=== PATIENT | female | born 1960 | race Caucasian/White ===

== ENCOUNTER 2016-09-17 10:21 | Emergency (ER) ==
--- NOTE | 2016-09-17 11:08 | PROVIDER DOCUMENTATION ---
HPI-General Adult - General Source: patient - History of Present Illness -Gen Adult Nature of Presenting Problems: 56 y/o WF c/o FB under skin. Pt states a long hx of pulling razor blades and plastic out of her skin. States that she has several lacerations to her head and there are also peices of plastic coming from her lips. States that she has been seen several times for this problem, but has not had any relief yet. Denies any other sxs, including SI/HI. <Celi Estevez - Last Filed: 09/17/16 20:04> <Romeo Penny - Last Filed: 09/18/16 01:40> <Jaret Traore - Last Filed: 09/18/16 08:36> - General Chief Complaint: Sores/Lesions Stated Complaint: GENERAL Time Seen by Provider: 09/17/16 10:42 Allergies/Adverse Reactions: Patient Allergies Allergy/AdvReac Type Severity Reaction Status Date / Time No Known Allergies Allergy Verified 09/17/16 10:55 Home Medications: Buspirone HCl [Buspar] 5 mg PO BID 08/05/16 Clonazepam [Klonopin] 2 mg PO BID 09/06/16 Review of Systems - Adult - REVIEW OF SYSTEMS - ADULT Constitutional: reports: no symptoms reported. denies: chills, fever Eyes: reports: no symptoms reported. denies: blurred vision, double vision Ears, Nose, Mouth & Throat: reports: no symptoms reported. denies: ear pain, throat pain Cardiovascular: reports: no symptoms reported. denies: chest pain, palpitations Respiratory: reports: no symptoms reported. denies: dyspnea on exertion, shortness of breath Gastrointestinal: reports: no symptoms reported. denies: abdominal pain, nausea , vomiting Genitourinary: reports: no symptoms reported. denies: dysuria, frequency Musculoskeletal: reports: no symptoms reported. denies: joint pain, joint swelling Integumentary: reports: see HPI, other. denies: nail changes, rash Neurological: reports: no symptoms reported. denies: numbness, paresthesia Psychiatric: reports: see HPI, other. denies: suicidal thoughts Endocrine: reports: no symptoms reported. denies: cold intolerance, heat intolerance Hematologic/Lymphatic: reports: no symptoms reported. denies: easy bruising, prolonged bleeding Allergic/Immunologic: reports: no symptoms reported All Other Systems: Reviewed and Negative <Celi Estevez - Last Filed: 09/17/16 20:04> Past History - Adult - PAST MEDICAL HISTORY-ADULT Review of Records: reports: Nursing Assessment Review, Medications Reviewed Major Childhood Illnesses: reports: denies history Cardiovascular: reports: denies history Respiratory: reports: COPD Gastrointestinal: reports: denies history Obstetrical/Gynecological: reports: denies history Genitourinary: reports: denies history Musculoskeletal: reports: chronic pain Neurological: reports: headaches/migraines, Seizures/Epilepsy, other (cerebral aneurysms) Psychiatric: reports: anxiety, depression, psychiatric problems Endocrine/Immune: reports: denies history Other Conditions: reports: denies history Additional History: Hep-C - PRIOR SURGERIES/PROCEDURES Surgical/Procedure History: reports: , other (craniotomy) - PRIOR HOSPITALIZATIONS Prior Hospitalizations: reports: psychiatric or rehab - IMMUNIZATION STATUS Childhood Immunizations: See Nurse Assessment Flu Vaccine: See Nurse Assessment - FAMILY HISTORY Family History: reviewed, not pertinent - SOCIAL HISTORY Smoking: cigarettes, less than 1 pack/day Provider spent 3-5 mins advising pt. on dangers of tobacco.: Discussed manners to quit use, and f/u contacts for add'l counseling. <Celi Estevez - Last Filed: 09/17/16 20:04> Physical Exam-General - PHYSICAL EXAM-ADULT Initial Vital Signs Reviewed: Yes - CONSTITUTIONAL General Appearance: alert, moderate distress - EYES Eyes: pink conjunctivae - HEAD, EARS, NOSE, MOUTH & THROAT HENMT: normocephalic/atraumatic, moist mucous membranes - NECK Neck: supple, normal inspection - RESPIRATORY Respiratory: lungs clear, normal breath sounds. negative: crackles, rales, rhonchi, stridor, wheezing - CARDIOVASCULAR Cardiovascular: regular rate, rhythm. negative: bradycardia, tachycardia - MUSCULOSKELETAL Extremity: normal range of motion, normal inspection, normal capillary refill. negative: abnormal NV exam, tenderness - SKIN Integumentary: normal color, normal turgor, warm/dry, other (skin abrasion to nose and upper lip from fall). negative: erythema, laceration(s), rash, swelling, tenderness - NEUROLOGIC Neurologic: communications administrator II-XII nml as tested. negative: aphasia - PSYCHIATRIC Psych/Mental Status: anxious, tearful, other (pulling at her skin during exam on bilat UE, bilat LE, lower lip, neck, low back; nothing noted in these areas on exam.) <Celi Estevez - Last Filed: 09/17/16 20:04> Progress - PLAN OF CARE/RESULTS Progress/Plan/Lab Results: Dermatology office called to see if pt could get an appt soon; they advised office closing early and the soonest appt would be in December. Discussed this with pt and she states if she doesn't get to see her today, she will kill herself. Pt is now being evaluated as psych. - PSYCHIATRIC Medically clear for psych eval and/or transfer to [facility] Yes - XRAY 1 XRAY Study: Chest Impression: See EMR Report (Negative, per Dr. Llanos) - CT/MRI 1 CT Study: Head Impression: See EMR Report (No acute disease or change from prior, per Dr. Llnaos) - CONSULTS/PCP/HOSPITALIST Notification #1 *Consult/PCP/Hospitalist*: W screenerLauri Time Discussed: 15:30 Reason/Comments: SI, psych Consult Disposition: other (Will look for a bed; nothing available at [facility]) <Celi Estevez - Last Filed: 09/17/16 20:04> - REASSESSMENT Reassessment #1 Time Reassessed: 21:27 Status: unchanged Reassessment Comment: Pt resting in the bed. NAD. - CHANGE OF SHIFT REPORT (ED Provider) Report Given and Care Transferred to:: Romeo Penny PA-C (Wes) Time of Transfer: 21:26 Items Pending: Other (Placement) Tentative Impression of Patient: stable <Romeo Penny - Last Filed: 09/18/16 01:40> - PLAN OF CARE/RESULTS Progress/Plan/Lab Results: Laboratory Results - last 24 hr 09/17/16 09/17/16 09/17/16 11:49 11:49 12:30 WBC RBC Hgb Hct MCV MCH MCHC RDW Std Deviation Plt Count MPV Immature Gran % (Auto) Neut % (Auto) Lymph % (Auto) Angelina % (Auto) Eos % (Auto) Baso % (Auto) Immature Gran # (Auto) Neut # (Auto) Lymph # (Auto) Angelina # (Auto) Eos # (Auto) Baso # (Auto) Sodium Potassium Chloride Carbon Dioxide Anion Gap BUN Creatinine Estimated GFR/1.73 m2 BUN/Creatinine Ratio Glucose Calculated Osmolality Calcium Magnesium 1.7 Total Bilirubin AST ALT Alkaline Phosphatase Total Protein Albumin Globulin Albumin/Globulin Ratio Vitamin B12 Folate TSH Free T4 Urine Source CLEAN CATCH Urine Color YELLOW Urine Turbidity CLEAR Urine pH 7.0 Ur Specific [place] 1.018 Urine Protein NEGATIVE Ur Glucose (Stick) TRACE Ur Ketones (Stick) NEGATIVE Urine Blood NEGATIVE Urine Nitrite NEGATIVE Urine Bilirubin NEGATIVE Urobilinogen Dipstick NORMAL Urine Leukocytes NEGATIVE Urine WBC (Auto) <10 Urine RBC (Auto) <10 U Epithel Cells (Auto) <10 Urine Bacteria (Auto) NEGATIVE Urine Opiates Screen PRESUMPTIVE POSITIVE A Ur Oxycodone Screen PRESUMPTIVE POSITIVE A Ur Methadone, Qual NONE DETECTED Ur Barbiturates Screen NONE DETECTED Ur Phencyclidine Scrn NONE DETECTED Ur Amphetamines Screen NONE DETECTED U Benzodiazepines Scrn PRESUMPTIVE POSITIVE A Urine Cocaine Screen NONE DETECTED U Cannabinoids Screen NONE DETECTED RPR 09/17/16 09/17/16 09/17/16 12:30 12:30 12:30 WBC 13.97 H RBC 4.45 Hgb 13.9 Hct 41.6 MCV 93.5 MCH 31.2 H MCHC 33.4 RDW Std Deviation 13.3 Plt Count 267 MPV 11.0 H Immature Gran % (Auto) 0.3 Neut % (Auto) 77.3 H Lymph % (Auto) 16.6 L Angelina % (Auto) 5.4 Eos % (Auto) 0.1 Baso % (Auto) 0.3 Immature Gran # (Auto) 0.04 Neut # (Auto) 10.79 H Lymph # (Auto) 2.32 Angelina # (Auto) 0.76 H Eos # (Auto) 0.02 Baso # (Auto) 0.04 Sodium 141 Potassium 3.5 Chloride 103 Carbon Dioxide 23 L Anion Gap 15 BUN 6 L Creatinine 0.5 Estimated GFR/1.73 m2 > 60 BUN/Creatinine Ratio 12 Glucose 97 Calculated Osmolality 279 Calcium 9.1 Magnesium Total Bilirubin 0.25 AST 16 ALT 14 Alkaline Phosphatase 86 Total Protein 6.7 Albumin 4.1 Globulin 2.6 Albumin/Globulin Ratio 1.6 Vitamin B12 Folate 5.4 L TSH Free T4 Urine Source Urine Color Urine Turbidity Urine pH Ur Specific [place] Urine Protein Ur Glucose (Stick) Ur Ketones (Stick) Urine Blood Urine Nitrite Urine Bilirubin Urobilinogen Dipstick Urine Leukocytes Urine WBC (Auto) Urine RBC (Auto) U Epithel Cells (Auto) Urine Bacteria (Auto) Urine Opiates Screen Ur Oxycodone Screen Ur Methadone, Qual Ur Barbiturates Screen Ur Phencyclidine Scrn Ur Amphetamines Screen U Benzodiazepines Scrn Urine Cocaine Screen U Cannabinoids Screen RPR 09/17/16 09/17/16 12:30 12:30 WBC RBC Hgb Hct MCV MCH MCHC RDW Std Deviation Plt Count MPV Immature Gran % (Auto) Neut % (Auto) Lymph % (Auto) Angelina % (Auto) Eos % (Auto) Baso % (Auto) Immature Gran # (Auto) Neut # (Auto) Lymph # (Auto) Angelina # (Auto) Eos # (Auto) Baso # (Auto) Sodium Potassium Chloride Carbon Dioxide Anion Gap BUN Creatinine Estimated GFR/1.73 m2 BUN/Creatinine Ratio Glucose Calculated Osmolality Calcium Magnesium Total Bilirubin AST ALT Alkaline Phosphatase Total Protein Albumin Globulin Albumin/Globulin Ratio Vitamin B12 390 Folate TSH 0.29 Free T4 1.17 Urine Source Urine Color Urine Turbidity Urine pH Ur Specific [place] Urine Protein Ur Glucose (Stick) Ur Ketones (Stick) Urine Blood Urine Nitrite Urine Bilirubin Urobilinogen Dipstick Urine Leukocytes Urine WBC (Auto) Urine RBC (Auto) U Epithel Cells (Auto) Urine Bacteria (Auto) Urine Opiates Screen Ur Oxycodone Screen Ur Methadone, Qual Ur Barbiturates Screen Ur Phencyclidine Scrn Ur Amphetamines Screen U Benzodiazepines Scrn Urine Cocaine Screen U Cannabinoids Screen RPR NON-REACTIVE Vital Signs Temp Pulse Resp BP Pulse Ox 09/18/16 06:00 97.8 F 79 16 151/100 98 09/18/16 02:32 66 18 138/88 100 09/18/16 00:11 98.0 F 71 16 166/79 99 09/17/16 14:06 97.5 F L 80 18 175/80 99 09/17/16 10:25 97.3 F L 103 H 18 182/79 100 No Known Allergies Allergy (Verified 09/17/16 10:55) Gabapentin [Neurontin] 600 mg PO TID #90 tablet 12/30/15 Buspirone HCl [Buspar] 5 mg PO BID 08/05/16 Clonazepam [Klonopin] 2 mg PO BID 09/06/16 Hydroxyzine [Atarax] 25 mg PO TID #60 tablet 09/11/16 Mineral Oil/Hydrophil Petrolat [Aquaphor Ointment] 5 gm TOP DAILY #1 jar Hydroxyzine [Atarax] 25 mg PO TID #20 tablet 09/17/16 Mineral Oil/Hydrophil Petrolat [Aquaphor Healing Ointment] 50 gm TP BID #1 oint...g. 09/17/16 Dietary Diet Regular Diet Start WedSep 18 542 I&O 09/17/16 09/18/16 09/19/16 06:59 06:59 06:59 Output Total 60 Balance -60 Laboratory 09/17/16 09/17/16 09/17/16 12:30 12:30 12:30 WBC RBC Hgb Hct MCV MCH MCHC RDW Std Deviation Plt Count MPV Immature Gran % (Auto) Neut % (Auto) Lymph % (Auto) Angelina % (Auto) Eos % (Auto) Baso % (Auto) Immature Gran # (Auto) Neut # (Auto) Lymph # (Auto) Angelina # (Auto) Eos # (Auto) Baso # (Auto) Sodium Potassium Chloride Carbon Dioxide Anion Gap BUN Creatinine Estimated GFR/1.73 m2 BUN/Creatinine Ratio Glucose Calculated Osmolality Calcium Magnesium Total Bilirubin AST ALT Alkaline Phosphatase Total Protein Albumin Globulin Albumin/Globulin Ratio Vitamin B12 390 Folate 5.4 L TSH 0.29 Free T4 1.17 Urine Source Urine Color Urine Turbidity Urine pH Ur Specific [place] Urine Protein Ur Glucose (Stick) Ur Ketones (Stick) Urine Blood Urine Nitrite Urine Bilirubin Urobilinogen Dipstick Urine Leukocytes Urine WBC (Auto) Urine RBC (Auto) U Epithel Cells (Auto) Urine Bacteria (Auto) Urine Opiates Screen Ur Oxycodone Screen Ur Methadone, Qual Ur Barbiturates Screen Ur Phencyclidine Scrn Ur Amphetamines Screen U Benzodiazepines Scrn Urine Cocaine Screen U Cannabinoids Screen RPR NON-REACTIVE 09/17/16 09/17/16 09/17/16 12:30 12:30 12:30 WBC 13.97 H RBC 4.45 Hgb 13.9 Hct 41.6 MCV 93.5 MCH 31.2 H MCHC 33.4 RDW Std Deviation 13.3 Plt Count 267 MPV 11.0 H Immature Gran % (Auto) 0.3 Neut % (Auto) 77.3 H Lymph % (Auto) 16.6 L Angelina % (Auto) 5.4 Eos % (Auto) 0.1 Baso % (Auto) 0.3 Immature Gran # (Auto) 0.04 Neut # (Auto) 10.79 H Lymph # (Auto) 2.32 Angelina # (Auto) 0.76 H Eos # (Auto) 0.02 Baso # (Auto) 0.04 Sodium 141 Potassium 3.5 Chloride 103 Carbon Dioxide 23 L Anion Gap 15 BUN 6 L Creatinine 0.5 Estimated GFR/1.73 m2 > 60 BUN/Creatinine Ratio 12 Glucose 97 Calculated Osmolality 279 Calcium 9.1 Magnesium 1.7 Total Bilirubin 0.25 AST 16 ALT 14 Alkaline Phosphatase 86 Total Protein 6.7 Albumin 4.1 Globulin 2.6 Albumin/Globulin Ratio 1.6 Vitamin B12 Folate TSH Free T4 Urine Source Urine Color Urine Turbidity Urine pH Ur Specific [place] Urine Protein Ur Glucose (Stick) Ur Ketones (Stick) Urine Blood Urine Nitrite Urine Bilirubin Urobilinogen Dipstick Urine Leukocytes Urine WBC (Auto) Urine RBC (Auto) U Epithel Cells (Auto) Urine Bacteria (Auto) Urine Opiates Screen Ur Oxycodone Screen Ur Methadone, Qual Ur Barbiturates Screen Ur Phencyclidine Scrn Ur Amphetamines Screen U Benzodiazepines Scrn Urine Cocaine Screen U Cannabinoids Screen RPR 09/17/16 09/17/16 11:49 11:49 WBC RBC Hgb Hct MCV MCH MCHC RDW Std Deviation Plt Count MPV Immature Gran % (Auto) Neut % (Auto) Lymph % (Auto) Angelina % (Auto) Eos % (Auto) Baso % (Auto) Immature Gran # (Auto) Neut # (Auto) Lymph # (Auto) Angelina # (Auto) Eos # (Auto) Baso # (Auto) Sodium Potassium Chloride Carbon Dioxide Anion Gap BUN Creatinine Estimated GFR/1.73 m2 BUN/Creatinine Ratio Glucose Calculated Osmolality Calcium Magnesium Total Bilirubin AST ALT Alkaline Phosphatase Total Protein Albumin Globulin Albumin/Globulin Ratio Vitamin B12 Folate TSH Free T4 Urine Source CLEAN CATCH Urine Color YELLOW Urine Turbidity CLEAR Urine pH 7.0 Ur Specific [place] 1.018 Urine Protein NEGATIVE Ur Glucose (Stick) TRACE Ur Ketones (Stick) NEGATIVE Urine Blood NEGATIVE Urine Nitrite NEGATIVE Urine Bilirubin NEGATIVE Urobilinogen Dipstick NORMAL Urine Leukocytes NEGATIVE Urine WBC (Auto) <10 Urine RBC (Auto) <10 U Epithel Cells (Auto) <10 Urine Bacteria (Auto) NEGATIVE Urine Opiates Screen PRESUMPTIVE POSITIVE A Ur Oxycodone Screen PRESUMPTIVE POSITIVE A Ur Methadone, Qual NONE DETECTED Ur Barbiturates Screen NONE DETECTED Ur Phencyclidine Scrn NONE DETECTED Ur Amphetamines Screen NONE DETECTED U Benzodiazepines Scrn PRESUMPTIVE POSITIVE A Urine Cocaine Screen NONE DETECTED U Cannabinoids Screen NONE DETECTED RPR Orders Category Date Time Status Regular Diet Diet 09/17/16 16:00 Completed Regular Diet Diet 09/18/16 05:43 Active CHEST-2 VIEWS [RAD] Stat Exams 09/17/16 11:34 Draft HEAD W/O CONTRAST [CT] Stat Exams 09/17/16 14:25 Draft CBC WITH ELECTRONIC DIFF [HEME] Stat Lab 09/17/16 12:30 Completed COMPREHENSIVE METABOLIC PANEL [CHEM] Stat Lab 09/17/16 12:30 Completed FOLATE Stat Lab 09/17/16 12:30 Completed FREE T4 Stat Lab 09/17/16 12:30 Completed MAGNESIUM [CHEM] Stat Lab 09/17/16 12:30 Completed RPR [SERO] Stat Lab 09/17/16 12:30 Completed TSH Stat Lab 09/17/16 12:30 Completed UDS [URINE DRUG SCREEN] Stat Lab 09/17/16 11:49 Completed URINALYSIS W/POSS RFLX CULT [URINALYSIS] Stat Lab 09/17/16 11:49 Completed VITAMIN B12 Stat Lab 09/17/16 12:30 Completed CefTRIAXONE [Rocephin] Med 09/17/16 14:07 Discontinued 1 gm IM NOW ONE Folic Acid Med 09/17/16 14:05 Discontinued 1 mg PO NOW ONE Lidocaine 1% Pf [Xylocaine-Mpf 1%] Med 09/17/16 14:07 Discontinued 5 ml INJ NOW ONE EKG [EKG] Stat Ther 09/17/16 11:34 Draft - REASSESSMENT Reassessment #2 Time Reassessed: 07:35 Status: unchanged (Took over pt's care at 6AM. Pt was examined and she is stable. Refuced breakfast. [facility] be transferred to [facility].) <Jaret Traore X - Last Filed: 09/18/16 08:36> Departure - Departure Time of Disposition Order: 14:14 Certified Medical Emergency: Emergent <Celi Estevez - Last Filed: 09/17/16 20:04> <Romeo Penny - Last Filed: 09/18/16 01:40> - Departure Time of Disposition Order: 08:36 Certified Medical Emergency: Emergent <Jaret Traore - Last Filed: 09/18/16 08:36> - Departure DIAGNOSIS: Tactile hallucination, Suicidal intent Disposition: [facility]ATRIC [facility]OSPITAL/[facility] [address] Condition: Stable Additional Instructions: Take medications as directed. Follow up with specialist as soon as possible. ED Follow Up Instructions: You have been treated by a care provider in the Emergency Department. These instructions are being provided to you so you can have an understanding of how to care for yourself upon discharge. Upon discharge from the Emergency Department, you are responsible for making arrangements for follow-up care by a physician of your choice. Take all prescribed medications as directed. Return to the Emergency Department immediately for any new or worsening symptoms. You may call the Physician Referral phone number at [phone] to obtain a list of Physicians who are taking new patients. Prescriptions: Mineral Oil/Hydrophil Petrolat [Aquaphor Healing Ointment] 50 gm TP BID #1 oint...g. Hydroxyzine [Atarax] 25 mg PO TID #20 tablet Referrals: Iman Bledsoe MD [STAFF PHYSICIAN] - Instructions: Psychosis Attestation - Physician/ Mid-level Attestation Patient care was provided by Mid-level provider (INDUSTRIAL/ORGANIZATIONAL PSYCHOLOGIST/PA):: Yes Mid-level provider:: Celi Estevez Mid-level documentation review:: The Mid-level provider documentation, treatment plan and medical decision making was reviewed by the physician who agrees with all treatment and medical decision making by the MLP. <Celi Estevez - Last Filed: 09/17/16 20:04> Physician Attestation Additional Progress - ADDT'L CHANGE OF SHIFT (ED Provider) Report Given and Care Transferred to:: Dr. Epstein Time of Transfer: 01:40 Items Pending: Other (Placement) Tentative Impression of Patient: Stable <Romeo Penny - Last Filed: 09/18/16 01:40>
[2016-09-17 11:59] LABS: URINE CULTURE NEEDED? NO; URINE MICRO REVIEW NEEDED? NO; URINE SOURCE CLEAN CATCH
[2016-09-17 12:09] LABS: BILIRUBIN URINE NEGATIVE (NEGATIVE); BLOOD URINE NEGATIVE (NEGATIVE); COLOR YELLOW; GLUCOSE URINE TRACE mg/dL (NEGATIVE); LEUKOCYTES URINE NEGATIVE (NEGATIVE); NITRITE URINE NEGATIVE (NEGATIVE); PROTEIN URINE NEGATIVE (NEGATIVE); SP GRAVITY URINE 1.018; TURBIDITY URINE CLEAR (CLEAR); UROBILINOGEN URINE NORMAL (NORMAL)
[2016-09-17 12:10] LABS: UR EPITHELIAL CELLS <10 /HPF (<10); URINE BACTERIA NEGATIVE /HPF; URINE RBC <10 /HPF (<10); URINE WBC <10 /HPF (<10)
--- NOTE | 2016-09-17 12:25 | Diag Imaging Result Document ---
PROCEDURE NAME: CHEST-2 VIEWS - 09/17/2016 CHEST X-RAY, 2 VIEWS: COMPARISON: 04/20/2016. FINDINGS: The lungs are normally expanded and clear. Heart size and mediastinal contours are normal. No pneumothorax or pleural effusion. IMPRESSION: Negative exam.
[2016-09-17 12:39] LABS: UR AMPHETAMINES QUAL NONE DETECTED (NONE DETECT); UR BARBITUATES QUAL NONE DETECTED (NONE DETECT); UR BENZODIAZEPIN QUAL PRESUMPTIVE POSITIVE (NONE DETECT); UR CANNABINOIDS QUAL NONE DETECTED (NONE DETECT); UR COCAINE QUAL NONE DETECTED (NONE DETECT); UR METHADONE QUAL NONE DETECTED (NONE DETECT); UR OPIATES QUAL PRESUMPTIVE POSITIVE (NONE DETECT); UR OXYCODONE QUAL PRESUMPTIVE POSITIVE (NONE DETECT); UR PCP QUAL NONE DETECTED (NONE DETECT)
[2016-09-17 12:42] LABS: MANUAL DIFF NEEDED? NO
[2016-09-17 12:45] LABS: BASO% 0.3 % (0.0-0.8); EOS# 0.02 X1000 (0.0-0.7); EOS% 0.1 % (0.0-10.0); HEMATOCRIT 41.6 % (37.0-47.0); HEMOGLOBIN 13.9 g/dL (12.0-16.0); IMM GRAN# 0.04 X1000 (0.0-0.04); IMM GRAN% 0.3 % (0.0-0.5); LYMPH# 2.32 X1000 (1.2-3.4); LYMPH% 16.6 % (20.5-51.1); MCH 31.2 PG (27-31); MCHC 33.4 g/dL (33-37); MCV 93.5 FL (81-99); MONO# 0.76 X1000 (0.11-0.59); MONO% 5.4 % (1.7-9.3); NEUT% 77.3 % (42.2-75.2); PLT 267 X1000 (130-400); RBC 4.45 XMIL (4.2-5.4)
[2016-09-17 13:12] LABS: AGAP 15; ALBUMIN 4.1 g/dL (3.5-5.0); ALKALINE PHOSPHATASE 86 U/L (32-104); BUN 6 mg/dL (8-22); CALCIUM 9.1 mg/dL (8.8-10.2); CHLORIDE 103 mmol/L (98-107); COSMO 279; GOT 16 U/L (10-30); GPT 14 U/L (10-36); POTASSIUM 3.5 mmol/L (3.5-5.1); SODIUM 141 mmol/L (136-145); TCO2 23 mmol/L (25-35); TOTAL BILIRUBIN 0.25 mg/dL (0.20-1.00); TOTAL PROTEIN 6.7 g/dL (6.3-8.3)
[2016-09-17 13:36] LABS: FREE T4 1.17 ng/dL (0.93-1.70)
[2016-09-17] MEDS ORDERED: FOLIC ACID PO ONE (14:05)
[2016-09-17] MEDS ORDERED: XYLOCAINE-MPF 1% INJ ONE (14:07)
[2016-09-17] MEDS ORDERED: ROCEPHIN IM ONE (14:07)
--- NOTE | 2016-09-17 14:49 | Diag Imaging Result Document ---
PROCEDURE NAME: HEAD W/O CONTRAST - 09/17/[address]: COMPARISON: 02/18/2014. FINDINGS: Stable aneurysm clip at the right skull base. Stable small area of encephalomalacia in the deep right cerebral hemisphere. No intracranial mass or hemorrhage. Stable right craniectomy changes. No skull fractures. The sinuses are clear. IMPRESSION: No acute disease or change from prior.
--- NOTE | 2016-09-17 15:36 | EKG Report ---
Test Performed on : 09/17/2016 2:08:33 PM Test Reason : [facility] court medical clearance Blood Pressure : / mmHG Vent. Rate : 080 BPM Atrial Rate : 080 BPM P-R Int : 136 ms QRS Dur : 096 ms QT Int : 410 ms P-R-T Axes : 073 -21 085 degrees QTc Int : 472 ms Normal sinus rhythm. Possible Left atrial enlargement Borderline ECG When compared with ECG of 11-AUG-2016 06:02, No significant change was found Unconfirmed Result
--- NOTE | 2016-09-17 16:00 | ED EKG INTERP ---
EKG Interpretation - EKG Time of EKG reading by physician:: 14:08 EKG Read and Signed by:: Miquel Powers EKG Interpretation (*Must complete 3 of following elements*): Abnormal Rate: 80 Rhythm: nsr [place]: normal QRS: normal ND Interval: normal ST Wave: normal Comments: prolonged qt
[2016-09-18 06:04] VITALS: BP 151/100
== END 2016-09-18 09:20 ==
LOC: ED 10:21
DX: R44.2 Other hallucinations (principal); R45.851 Suicidal ideations; J44.9 Chronic obstructive pulmonary disease, unspecified; G89.29 Other chronic pain; R51 Headache; S00.511A Abrasion of lip, initial encounter; S00.31XA Abrasion of nose, initial encounter; Z86.79 Personal history of other diseases of the circulatory system; Z79.899 Other long term (current) drug therapy; R56.9 Unspecified convulsions; F41.9 Anxiety disorder, unspecified; F32.9 Major depressive disorder, single episode, unspecified; B19.20 Unspecified viral hepatitis C without hepatic coma; F17.210 Nicotine dependence, cigarettes, uncomplicated; Z71.6 Tobacco abuse counseling; W19.XXXA Unspecified fall, initial encounter
CPT/HCPCS: 70450; 71020; 80053; 81001; 82607; 82746; 83735; 84439; 84443; 85025; 86592; 93005; 96372; G0480; J0696